=== PATIENT | male | born 1970 ===

== ENCOUNTER 2017-11-07 09:52 | Inpatient (IN) ==
[2017-11-07] MEDS ORDERED: PROPOFOL 1,000 MG/100 ML BOTTLE IV ONE (11:04)
[2017-11-07] MEDS: PROPOFOL 1,000 MG/100 ML BOTTLE IV SCH ×2 (11:30→14:20)
[2017-11-07] MEDS ORDERED: PHENYLEPHRINE DRIP 40 MG/250 ML PREMIX IV ONE (11:37)
[2017-11-07] MEDS ORDERED: PROMETHAZINE 25 MG TABLET PO PRN (11:48)
[2017-11-07] MEDS ORDERED: ALBUTEROL 2.5 MG/3 ML NEB RESP TX PRN ×2 (11:48→12:27)
[2017-11-07] MEDS ORDERED: PANTOPRAZOLE 40 MG VIAL IV SCH (12:00)
[2017-11-07] MEDS ORDERED: cefTRIAXone 1,000 MG in SYRINGE 1 EACH IV SCH (12:00)
[2017-11-07] MEDS ORDERED: PHENYLEPHRINE DRIP 40 MG/250 ML PREMIX IV SCH (12:00)
[2017-11-07] MEDS ORDERED: SODIUM CHLORIDE 0.9% 1,000 ML IV SCH (12:00)
[2017-11-07] MEDS ORDERED: ONDANSETRON 4 MG/2 ML VIAL IV PRN (12:27)
[2017-11-07] MEDS ORDERED: POTASSIUM CHLORIDE 20 MEQ/15 ML UDCUP PER TUBE PRN (12:27)
[2017-11-07] MEDS ORDERED: MAGNESIUM HYDROXIDE SUSP 30 ML UDCUP PO PRN (12:27)
[2017-11-07] MEDS ORDERED: MAGNESIUM OXIDE 400 MG PO PRN (12:27)
[2017-11-07] MEDS ORDERED: DEXTROSE 50% 25 GM/50 ML VIAL IV PRN ×2 (12:27)
[2017-11-07] MEDS ORDERED: GLUCAGON 1 MG VIAL IM PRN ×2 (12:27)
[2017-11-07] MEDS ORDERED: ACETAMINOPHEN 325 MG TABLET PO PRN (12:27)
[2017-11-07] MEDS ORDERED: MAGNESIUM SULFATE 2 GM/50 ML PREMIX IV PRN ×2 (12:27)
[2017-11-07] MEDS ORDERED: LINEZOLID 600 MG/300 ML PREMIX IV SCH (12:30)
[2017-11-07] MEDS ORDERED: methylPREDNISolone SOD SUC 40 MG/1 ML VIAL IV SCH (12:30)
[2017-11-07] MEDS ORDERED: FAMOTIDINE 20 MG/2 ML VIAL IV SCH (12:30)
[2017-11-07 12:48] LABS: ABG HCO3 24.3 MMOL/L (20-26); ABG Oxygen Saturation 93.4 % (95-100); ABG PCO2 40.8 MM HG (35-48); ABG PH 7.393 (7.35-7.45); ABG PO2 70.6 MM HG (80-95)
[2017-11-07] MEDS ORDERED: LINEZOLID INJ 600 MG in PREMIX 1 EACH IV SCH (13:00)
[2017-11-07 13:11] LABS: Basophils % 0.2 % (0.0-0.8); Eosinophils # 0.1 10*3/uL (0.0-0.87); Eosinophils % 0.4 % (0.00-10.9); Hematocrit 39.3 VOL% (42.0-52.0); Hemoglobin 12.1 GM/DL (14.0-18.0); Immature Granulocytes % 1.2 %; Immature Granulocytes Absolute 0.21 #; Lymphocytes # 0.4 10*3/uL (1.4-4.0); Lymphocytes % 2.4 % (21.2-54.2); Mean Corpuscular HGB Conc 30.8 GM/DL (32-36); Mean Corpuscular Hemoglobin 24 PG (27-34); Mean Corpuscular Volume 77.8 FL (87-102); Monocytes # 1.2 10*3/uL (0.11-0.8); Monocytes % 6.7 % (1.7-12.7); Neutrophils # 16.1 10*3/uL (1.4-7.4); Neutrophils % 89.1 % (38.7-73.9); Red Blood Count 5.05 MC/CUMM (3.8-5.5); Red Cell Distribution Width 20.1 % (9.3-17.3)
[2017-11-07 13:12] LABS: Platelet Count 142 T/CUMM (130-400)
[2017-11-07 13:15] LABS: INR 1.1; PT Patient Result 11.2 SECS
[2017-11-07 13:22] LABS: Ammonia 16 UMOL/L (11-32)
[2017-11-07 13:37] LABS: Alanine Aminotransferase 98 U/L (16-61); Alkaline Phosphatase 113 U/L (45-117); Aspartate Amino Transferase 63 U/L (0-37); Blood Urea Nitrogen 80 MG/DL (7-18); Calcium 7.7 MG/DL (8.5-10.1); Glucose 227 MG/DL (74-106); Osmolality,Calculated 318.7 MOS/KG (273-304); Potassium 3.9 MMOL/L (3.5-5.1); Sodium 145 MMOL/L (136-145); Total Protein 5.8 G/DL (6.4-8.3)
[2017-11-07 13:42] LABS: Band Neutrophils 1 % (0-10); Lymphocytes 1 % (20-55); Segmented Neutrophils 96 % (50-85); Total Cells Counted 100
[2017-11-07 13:43] LABS: Hypochromasia 1+; Microcytosis 1+
[2017-11-07 13:44] LABS: Platelet Estimate Adequate
[2017-11-07] MEDS: ALBUTEROL/IPRATROPIUM 3 ML NEB RESP TX SCH ×2 (13:54→19:14)
[2017-11-07] MEDS ORDERED: MORPHINE 4 MG/1 ML VIAL IV PRN ×2 (14:30)
[2017-11-07] MEDS ORDERED: MOXIFLOXACIN 0.5% OPH SOLN 3 ML BOTTLE BOTH EYES SCH (15:00)
[2017-11-07] MEDS ORDERED: FUROSEMIDE 40 MG/4 ML VIAL IV SCH (16:00)
[2017-11-07] MEDS: INSULIN REGULAR 100 UNIT/ML SUBCUT SCH (19:17)
[2017-11-07] MEDS: CIPROFLOXACIN 0.3% OPH SOLN 2.5 ML BOTTLE BOTH EYES SCH ×2 (19:17→21:42)
[2017-11-07] MEDS: DILTIAZEM 30 MG TABLET PO SCH ×2 (19:46→21:41)
[2017-11-07] MEDS ORDERED: ENOXAPARIN 30 MG/0.3 ML SYRINGE SUBCUT SCH (21:00)
[2017-11-07] MEDS ORDERED: NOREPINEPHRINE 8 MG in SODIUM CHLORIDE 0.9% 242 ML IV PRN (21:41)
[2017-11-07] MEDS: FERROUS SULFATE 300 MG/5 ML UDCUP PO SCH (21:42)
[2017-11-07] MEDS: AMIODARONE 200 MG TABLET PO SCH (21:42)
[2017-11-07] MEDS: FUROSEMIDE 40 MG/4 ML VIAL IV SCH (21:42)
[2017-11-07] MEDS: cefTRIAXone 1,000 MG in SYRINGE 1 EACH IV SCH (21:43)
[2017-11-07] MEDS: methylPREDNISolone SOD SUC 40 MG/1 ML VIAL IV SCH (21:43)
[2017-11-07] MEDS: MINERAL OIL/PETROLATUM OPH OINT 3.5 GM TUBE BOTH EYES SCH (21:43)
[2017-11-07] MEDS: FAMOTIDINE 20 MG/2 ML VIAL IV SCH (21:43)
[2017-11-07] MEDS: LINEZOLID INJ 600 MG in PREMIX 1 EACH IV SCH (21:54)
[2017-11-07] MEDS: POLYVINYL ALCOHOL 1.4% OPH SOLN 15 ML BOTTLE BOTH EYES SCH (22:32)
[2017-11-08] MEDS: INSULIN REGULAR 100 UNIT/ML SUBCUT SCH ×4 (00:03→18:48)
[2017-11-08] MEDS: HYDROmorphone 2 MG/1 ML VIAL IV PRN ×2 (01:38→20:53)
[2017-11-08 03:57] LABS: ABG Base Excess 1.2 MMOL/L (-2.5-2.5); ABG HCO3 25.5 MMOL/L (20-26); ABG Oxygen Saturation 98.4 % (95-100); ABG PCO2 53.6 MM HG (35-48); ABG PH 7.329 (7.35-7.45); ABG TCO2 25.3 MMOL/L (23-27)
[2017-11-08] MEDS: DILTIAZEM 30 MG TABLET PO SCH ×4 (04:09→20:40)
[2017-11-08 06:39] LABS: Basophils % 0.1 % (0.0-0.8); Eosinophils % 0.1 % (0.00-10.9); Hematocrit 37.8 VOL% (42.0-52.0); Hemoglobin 11.4 GM/DL (14.0-18.0); Immature Granulocytes % 0.7 %; Immature Granulocytes Absolute 0.09 #; Lymphocytes # 0.2 10*3/uL (1.4-4.0); Lymphocytes % 1.5 % (21.2-54.2); Mean Corpuscular HGB Conc 30.2 GM/DL (32-36); Mean Corpuscular Hemoglobin 24 PG (27-34); Mean Corpuscular Volume 79.1 FL (87-102); Monocytes # 0.3 10*3/uL (0.11-0.8); Monocytes % 2.3 % (1.7-12.7); Neutrophils # 12.6 10*3/uL (1.4-7.4); Neutrophils % 95.3 % (38.7-73.9); Platelet Count 130 T/CUMM (130-400); Red Blood Count 4.78 MC/CUMM (3.8-5.5); Red Cell Distribution Width 20.3 % (9.3-17.3); White Blood Count 13.2 T/CUMM (4-12)
[2017-11-08 06:58] LABS: Band Neutrophils 1 % (0-10); Lymphocytes 1 % (20-55); Segmented Neutrophils 97 % (50-85); Total Cells Counted 100
[2017-11-08 06:59] LABS: Hypochromasia 2+; Microcytosis 1+; Platelet Estimate Adequate
[2017-11-08 07:07] LABS: Albumin 1.9 G/DL (3.4-5.0); Bilirubin,Total 1.5 MG/DL (0.2-1.0); Calcium 7.4 MG/DL (8.5-10.1); Osmolality,Calculated 321.6 MOS/KG (273-304); Potassium 4.5 MMOL/L (3.5-5.1); Total Protein 5.7 G/DL (6.4-8.3)
[2017-11-08] MEDS: ALBUTEROL/IPRATROPIUM 3 ML NEB RESP TX SCH ×4 (07:52→19:16)
[2017-11-08] MEDS: FUROSEMIDE 40 MG/4 ML VIAL IV SCH ×2 (09:33→20:40)
[2017-11-08] MEDS: methylPREDNISolone SOD SUC 40 MG/1 ML VIAL IV SCH ×2 (09:34→20:41)
[2017-11-08] MEDS: ASPIRIN CHEW 81 MG TABLET PO SCH (09:35)
[2017-11-08] MEDS: cefTRIAXone 1,000 MG in SYRINGE 1 EACH IV SCH ×2 (09:35→20:40)
[2017-11-08] MEDS: FERROUS SULFATE 300 MG/5 ML UDCUP PO SCH ×2 (09:36→20:39)
[2017-11-08] MEDS: INSULIN GLARGINE 100 UNIT/ML SUBCUT SCH (09:37)
[2017-11-08] MEDS: AMIODARONE 200 MG TABLET PO SCH ×2 (09:37→20:39)
[2017-11-08] MEDS: POLYVINYL ALCOHOL 1.4% OPH SOLN 15 ML BOTTLE BOTH EYES SCH (11:40)
[2017-11-08] MEDS: CIPROFLOXACIN 0.3% OPH SOLN 2.5 ML BOTTLE BOTH EYES SCH ×3 (11:40→20:40)
[2017-11-08] MEDS: LINEZOLID INJ 600 MG in PREMIX 1 EACH IV SCH ×2 (11:41→20:41)
[2017-11-08 12:36] LABS: Amorphous Crystals,Urine Occasional /HPF (Few); Apearance,Urine Slightly Hazy (Clear); Bacteria,Urine Occasional /HPF (Few); Bilirubin,Urine Negative (Negative); Blood, Urine Large mg/dL (Negative); Glucose,Urine (UA) 50 mg/dL (Negative); Ketones,Urine Negative (Negative); Mucus,Urine Occasional /LPF (Occasional); Nitrite,Urine Negative (Negative); Protein,Urine Negative; RBC,Urine 3 /HPF (0-4); Squamous Epithelial Cell,Urine Occasional /HPF (0-10); Urine Color Yellow (Yellow); Urine Specific Gravity 1.013 (1.001-1.035); Urine Urobilinogen < 2.0 EU/DL (0.2-1.0); WBC,Urine 12 /HPF (0-6)
[2017-11-08] MEDS: PROPOFOL 1,000 MG/100 ML BOTTLE IV SCH (15:54)
[2017-11-08] MEDS: MINERAL OIL/PETROLATUM OPH OINT 3.5 GM TUBE BOTH EYES SCH (20:41)
[2017-11-08] MEDS: FAMOTIDINE 20 MG/2 ML VIAL IV SCH (20:41)
[2017-11-08] MEDS ORDERED: ENOXAPARIN 40 MG/0.4 ML SYRINGE SUBCUT SCH (21:00)
[2017-11-09] MEDS: POLYVINYL ALCOHOL 1.4% OPH SOLN 15 ML BOTTLE BOTH EYES SCH ×2 (00:34→10:32)
[2017-11-09] MEDS: INSULIN REGULAR 100 UNIT/ML SUBCUT SCH ×3 (00:34→12:24)
[2017-11-09] MEDS: ALBUTEROL/IPRATROPIUM 3 ML NEB RESP TX SCH ×3 (00:50→12:21)
[2017-11-09] MEDS: DILTIAZEM 30 MG TABLET PO SCH ×3 (03:53→15:02)
[2017-11-09 03:55] LABS: ABG Base Excess 2.4 MMOL/L (-2.5-2.5); ABG HCO3 26.5 MMOL/L (20-26); ABG Oxygen Saturation 98.4 % (95-100); ABG PCO2 49.3 MM HG (35-48); ABG PH 7.369 (7.35-7.45); ABG TCO2 25.3 MMOL/L (23-27)
[2017-11-09 04:11] LABS: Basophils % 0.1 % (0.0-0.8); Hematocrit 38.5 VOL% (42.0-52.0); Hemoglobin 11.9 GM/DL (14.0-18.0); Immature Granulocytes % 0.6 %; Immature Granulocytes Absolute 0.08 #; Lymphocytes # 0.1 10*3/uL (1.4-4.0); Mean Corpuscular HGB Conc 30.9 GM/DL (32-36); Mean Corpuscular Hemoglobin 24 PG (27-34); Mean Corpuscular Volume 77.6 FL (87-102); Monocytes # 0.2 10*3/uL (0.11-0.8); Monocytes % 1.4 % (1.7-12.7); Neutrophils # 13.3 10*3/uL (1.4-7.4); Neutrophils % 96.9 % (38.7-73.9); Platelet Count 131 T/CUMM (130-400); Red Blood Count 4.96 MC/CUMM (3.8-5.5); Red Cell Distribution Width 20.5 % (9.3-17.3); White Blood Count 13.7 T/CUMM (4-12)
[2017-11-09 04:45] LABS: Calcium 8.1 MG/DL (8.5-10.1); Osmolality,Calculated 333.3 MOS/KG (273-304); Potassium 4.3 MMOL/L (3.5-5.1)
[2017-11-09 04:54] LABS: Prealbumin 14.6 MG/DL (20-40)
[2017-11-09 04:59] LABS: Band Neutrophils 1 % (0-10); Segmented Neutrophils 97 % (50-85); Total Cells Counted 100
[2017-11-09 05:00] LABS: Hypochromasia 1+; Microcytosis 1+; Platelet Estimate Normal
[2017-11-09 05:01] LABS: Giant Platelets Few; Target Cells Few
[2017-11-09] MEDS: cefTRIAXone 1,000 MG in SYRINGE 1 EACH IV SCH (09:28)
[2017-11-09] MEDS: INSULIN GLARGINE 100 UNIT/ML SUBCUT SCH (09:29)
[2017-11-09] MEDS: AMIODARONE 200 MG TABLET PO SCH (09:35)
[2017-11-09] MEDS: FERROUS SULFATE 300 MG/5 ML UDCUP PO SCH (09:35)
[2017-11-09] MEDS: ASPIRIN CHEW 81 MG TABLET PO SCH (09:35)
[2017-11-09] MEDS: methylPREDNISolone SOD SUC 40 MG/1 ML VIAL IV SCH (09:35)
[2017-11-09] MEDS: FUROSEMIDE 40 MG/4 ML VIAL IV SCH (09:37)
[2017-11-09] MEDS: LINEZOLID INJ 600 MG in PREMIX 1 EACH IV SCH (09:45)
[2017-11-09] MEDS: CIPROFLOXACIN 0.3% OPH SOLN 2.5 ML BOTTLE BOTH EYES SCH ×2 (10:32→15:03)
[2017-11-09] MEDS: PROPOFOL 1,000 MG/100 ML BOTTLE IV SCH (12:21)
[2017-11-09] MEDS ORDERED: INSULIN GLARGINE 100 UNIT/ML SUBCUT SCH (13:11)
[2017-11-09 16:33] VITALS: BP 113/79
== END 2017-11-09 16:24 | DRG 208 ==
LOC: N.ICU 11:19

== ENCOUNTER 2017-11-09 21:03 | Inpatient (IN) ==
[2017-11-09] MEDS ORDERED: PROPOFOL 1,000 MG/100 ML BOTTLE IV ONE (22:38)
[2017-11-09] MEDS: PROPOFOL 1,000 MG/100 ML BOTTLE IV SCH (22:50)
[2017-11-09] MEDS ORDERED: PROMETHAZINE 25 MG TABLET PO PRN (23:14)
[2017-11-09] MEDS ORDERED: ALBUTEROL 2.5 MG/3 ML NEB RESP TX PRN (23:14)
[2017-11-09] MEDS ORDERED: MAGNESIUM HYDROXIDE SUSP 30 ML UDCUP PO PRN (23:16)
[2017-11-09] MEDS ORDERED: NOREPINEPHRINE 8 MG in SODIUM CHLORIDE 0.9% 242 ML IV PRN (23:45)
[2017-11-09] MEDS ORDERED: DEXTROSE 50% 25 GM/50 ML VIAL IV PRN (23:50)
[2017-11-09] MEDS ORDERED: HYDROmorphone 2 MG/1 ML VIAL IV PRN (23:50)
[2017-11-09] MEDS ORDERED: ONDANSETRON 4 MG/2 ML VIAL IV PRN (23:51)
[2017-11-09] MEDS ORDERED: DILTIAZEM INJ 100 MG in SODIUM CHLORIDE 0.9% 100 ML IV PRN (23:53)
[2017-11-10] MEDS: ALBUTEROL/IPRATROPIUM 3 ML NEB RESP TX SCH ×4 (01:44→19:23)
[2017-11-10] MEDS: INSULIN REGULAR 100 UNIT/ML SUBCUT SCH ×4 (02:05→17:54)
[2017-11-10 05:03] LABS: ABG Base Excess 1.2 MMOL/L (-2.5-2.5); ABG HCO3 25.5 MMOL/L (20-26); ABG Oxygen Saturation 98.9 % (95-100); ABG PCO2 50.1 MM HG (35-48); ABG TCO2 24.5 MMOL/L (23-27)
[2017-11-10] MEDS: PROPOFOL 1,000 MG/100 ML BOTTLE IV SCH (05:10)
[2017-11-10] MEDS: cefTRIAXone 1,000 MG in SYRINGE 1 EACH IV SCH ×2 (08:48→20:56)
[2017-11-10] MEDS: methylPREDNISolone SOD SUC 40 MG/1 ML VIAL IV SCH ×2 (08:50→20:57)
[2017-11-10] MEDS: FAMOTIDINE 20 MG/2 ML VIAL IV SCH (08:54)
[2017-11-10] MEDS: FERROUS SULFATE 300 MG/5 ML UDCUP PO SCH ×2 (08:55→20:57)
[2017-11-10] MEDS: ASPIRIN 325 MG TABLET PO SCH (08:55)
[2017-11-10] MEDS: AMIODARONE 200 MG TABLET PO SCH ×2 (08:55→20:57)
[2017-11-10] MEDS: FUROSEMIDE 40 MG/4 ML VIAL IV SCH ×2 (08:55→20:56)
[2017-11-10] MEDS: ENOXAPARIN 40 MG/0.4 ML SYRINGE SUBCUT SCH (08:56)
[2017-11-10] MEDS: LINEZOLID INJ 600 MG in PREMIX 1 EACH IV SCH ×2 (08:57→20:57)
[2017-11-10] MEDS: CIPROFLOXACIN 0.3% OPH SOLN 2.5 ML BOTTLE BOTH EYES SCH ×3 (08:58→20:57)
[2017-11-10] MEDS: POLYVINYL ALCOHOL 1.4% OPH SOLN 15 ML BOTTLE BOTH EYES SCH ×2 (08:58→20:57)
[2017-11-10] MEDS: MINERAL OIL/PETROLATUM OPH OINT 3.5 GM TUBE BOTH EYES SCH (20:57)
[2017-11-11] MEDS: INSULIN REGULAR 100 UNIT/ML SUBCUT SCH ×4 (00:24→17:49)
[2017-11-11] MEDS: ALBUTEROL/IPRATROPIUM 3 ML NEB RESP TX SCH ×4 (00:30→19:49)
[2017-11-11] MEDS: PROPOFOL 1,000 MG/100 ML BOTTLE IV SCH (00:37)
[2017-11-11 04:20] LABS: ABG Base Excess 2.3 MMOL/L (-2.5-2.5); ABG HCO3 26.4 MMOL/L (20-26); ABG Oxygen Saturation 99.4 % (95-100); ABG PCO2 52.6 MM HG (35-48); ABG PH 7.349 (7.35-7.45); ABG TCO2 25.6 MMOL/L (23-27)
[2017-11-11 07:32] LABS: Calcium 8.6 MG/DL (8.5-10.1); Osmolality,Calculated 346.9 MOS/KG (273-304); Potassium 4.4 MMOL/L (3.5-5.1)
[2017-11-11] MEDS: POLYVINYL ALCOHOL 1.4% OPH SOLN 15 ML BOTTLE BOTH EYES SCH ×2 (08:43→20:38)
[2017-11-11] MEDS: CIPROFLOXACIN 0.3% OPH SOLN 2.5 ML BOTTLE BOTH EYES SCH ×3 (08:43→20:38)
[2017-11-11] MEDS: FERROUS SULFATE 300 MG/5 ML UDCUP PO SCH ×2 (08:43→20:38)
[2017-11-11] MEDS: ASPIRIN 325 MG TABLET PO SCH (08:43)
[2017-11-11] MEDS: AMIODARONE 200 MG TABLET PO SCH ×2 (08:43→20:38)
[2017-11-11] MEDS: ENOXAPARIN 40 MG/0.4 ML SYRINGE SUBCUT SCH (08:44)
[2017-11-11] MEDS: FAMOTIDINE 20 MG/2 ML VIAL IV SCH (08:44)
[2017-11-11] MEDS: cefTRIAXone 1,000 MG in SYRINGE 1 EACH IV SCH (08:44)
[2017-11-11] MEDS: FUROSEMIDE 40 MG/4 ML VIAL IV SCH (08:44)
[2017-11-11] MEDS: LINEZOLID INJ 600 MG in PREMIX 1 EACH IV SCH ×2 (08:48→20:36)
[2017-11-11] MEDS: methylPREDNISolone SOD SUC 40 MG/1 ML VIAL IV SCH (08:48)
[2017-11-11 08:55] LABS: Eosinophils % 0.6 % (0.00-10.9); Hemoglobin 11.7 GM/DL (14.0-18.0); Immature Granulocytes % 1.1 %; Immature Granulocytes Absolute 0.02 #; Lymphocytes # 0.1 10*3/uL (1.4-4.0); Mean Corpuscular HGB Conc 29.4 GM/DL (32-36); Mean Corpuscular Hemoglobin 24 PG (27-34); Mean Corpuscular Volume 81.1 FL (87-102); Monocytes # 0.3 10*3/uL (0.11-0.8); Monocytes % 17.2 % (1.7-12.7); Neutrophils # 1.4 10*3/uL (1.4-7.4); Neutrophils % 76.1 % (38.7-73.9); Platelet Count 109 T/CUMM (130-400); Red Blood Count 4.91 MC/CUMM (3.8-5.5); Red Cell Distribution Width 20.7 % (9.3-17.3); White Blood Count 1.8 T/CUMM (4-12)
[2017-11-11 09:05] LABS: Hematocrit 39.8 VOL% (42.0-52.0)
[2017-11-11 09:26] LABS: Band Neutrophils 3 % (0-10); Eosinophils 2 % (0-10); Lymphocytes 18 % (20-55); Nucleated Red Blood Cells 5 (0-5); Segmented Neutrophils 60 % (50-85); Total Cells Counted 100
[2017-11-11 09:27] LABS: Hypochromasia 1+
[2017-11-11 09:28] LABS: Microcytosis 1+; Platelet Estimate Decreased
[2017-11-11 09:29] LABS: Spherocytes Few
[2017-11-11] MEDS: INSULIN NPH 100 UNIT/ML SUBCUT SCH (17:49)
[2017-11-11] MEDS: MINERAL OIL/PETROLATUM OPH OINT 3.5 GM TUBE BOTH EYES SCH (20:41)
[2017-11-12] MEDS: PROPOFOL 1,000 MG/100 ML BOTTLE IV SCH (00:03)
[2017-11-12] MEDS: INSULIN REGULAR 100 UNIT/ML SUBCUT SCH ×4 (00:12→17:01)
[2017-11-12] MEDS: ALBUTEROL/IPRATROPIUM 3 ML NEB RESP TX SCH ×4 (00:38→20:05)
[2017-11-12 06:16] LABS: ABG HCO3 27.5 MMOL/L (20-26); ABG PCO2 53.9 MM HG (35-48); ABG PH 7.358 (7.35-7.45)
[2017-11-12 06:17] LABS: ABG Base Excess 3.5 MMOL/L (-2.5-2.5); ABG Oxygen Saturation 98.3 % (95-100); ABG TCO2 26.8 MMOL/L (23-27)
[2017-11-12 07:48] LABS: Basophils % 0.8 % (0.0-0.8); Eosinophils # 0.2 10*3/uL (0.0-0.87); Eosinophils % 17.4 % (0.00-10.9); Hematocrit 41.1 VOL% (42.0-52.0); Hemoglobin 12.5 GM/DL (14.0-18.0); Immature Granulocytes % 0.8 %; Immature Granulocytes Absolute 0.01 #; Lymphocytes # 0.2 10*3/uL (1.4-4.0); Lymphocytes % 15.7 % (21.2-54.2); Mean Corpuscular HGB Conc 30.4 GM/DL (32-36); Mean Corpuscular Hemoglobin 24 PG (27-34); Mean Corpuscular Volume 79.3 FL (87-102); Monocytes # 0.3 10*3/uL (0.11-0.8); Monocytes % 28.1 % (1.7-12.7); Neutrophils # 0.5 10*3/uL (1.4-7.4); Neutrophils % 37.2 % (38.7-73.9); Platelet Count 128 T/CUMM (130-400); Red Blood Count 5.18 MC/CUMM (3.8-5.5); Red Cell Distribution Width 20.6 % (9.3-17.3); White Blood Count 1.2 T/CUMM (4-12)
[2017-11-12 08:19] LABS: Prealbumin 16.8 MG/DL (20-40)
[2017-11-12 08:38] LABS: Calcium 8.8 MG/DL (8.5-10.1); Osmolality,Calculated 345.7 MOS/KG (273-304)
[2017-11-12 09:00] LABS: Band Neutrophils 4 % (0-10); Eosinophils 4 % (0-10); Lymphocytes 24 % (20-55); Nucleated Red Blood Cells 1 (0-5); Segmented Neutrophils 52 % (50-85); Total Cells Counted 100
[2017-11-12] MEDS ORDERED: methylPREDNISolone SOD SUC 40 MG/1 ML VIAL IV SCH (09:00)
[2017-11-12] MEDS: FERROUS SULFATE 300 MG/5 ML UDCUP PO SCH ×2 (09:02→22:11)
[2017-11-12] MEDS: FUROSEMIDE 40 MG/4 ML VIAL IV SCH (09:02)
[2017-11-12] MEDS: CIPROFLOXACIN 0.3% OPH SOLN 2.5 ML BOTTLE BOTH EYES SCH ×3 (09:02→22:12)
[2017-11-12] MEDS: ASPIRIN 325 MG TABLET PO SCH (09:02)
[2017-11-12] MEDS: AMIODARONE 200 MG TABLET PO SCH ×2 (09:02→22:11)
[2017-11-12] MEDS: INSULIN NPH 100 UNIT/ML SUBCUT SCH ×2 (09:02→16:56)
[2017-11-12] MEDS: POLYVINYL ALCOHOL 1.4% OPH SOLN 15 ML BOTTLE BOTH EYES SCH ×2 (09:02→22:12)
[2017-11-12] MEDS: FAMOTIDINE 20 MG/2 ML VIAL IV SCH (09:03)
[2017-11-12 09:04] LABS: Microcytosis Slight
[2017-11-12 09:05] LABS: Hypochromasia 1+
[2017-11-12 09:06] LABS: Platelet Estimate Adequate
[2017-11-12] MEDS: MINERAL OIL/PETROLATUM OPH OINT 3.5 GM TUBE BOTH EYES SCH (22:12)
[2017-11-13] MEDS: PROPOFOL 1,000 MG/100 ML BOTTLE IV SCH ×2 (00:30→23:54)
[2017-11-13] MEDS: INSULIN REGULAR 100 UNIT/ML SUBCUT SCH ×4 (01:45→17:54)
[2017-11-13] MEDS: ALBUTEROL/IPRATROPIUM 3 ML NEB RESP TX SCH ×4 (02:09→19:11)
[2017-11-13 03:00] LABS: ABG Base Excess 6.3 MMOL/L (-2.5-2.5); ABG HCO3 30.1 MMOL/L (20-26); ABG Oxygen Saturation 98.6 % (95-100); ABG PCO2 47.7 MM HG (35-48); ABG PH 7.431 (7.35-7.45); ABG TCO2 27.5 MMOL/L (23-27); Allen Test Positive; Pt O2 Delivery Device Ventilator
[2017-11-13] MEDS: FAMOTIDINE 20 MG/2 ML VIAL IV SCH (08:15)
[2017-11-13] MEDS: FERROUS SULFATE 300 MG/5 ML UDCUP PO SCH ×2 (08:18→20:54)
[2017-11-13] MEDS: ASPIRIN 325 MG TABLET PO SCH (08:18)
[2017-11-13] MEDS: FUROSEMIDE 40 MG/4 ML VIAL IV SCH (08:18)
[2017-11-13] MEDS: AMIODARONE 200 MG TABLET PO SCH ×2 (08:18→20:55)
[2017-11-13] MEDS: INSULIN NPH 100 UNIT/ML SUBCUT SCH ×2 (08:18→17:54)
[2017-11-13] MEDS: CIPROFLOXACIN 0.3% OPH SOLN 2.5 ML BOTTLE BOTH EYES SCH ×3 (08:19→20:55)
[2017-11-13] MEDS: POLYVINYL ALCOHOL 1.4% OPH SOLN 15 ML BOTTLE BOTH EYES SCH ×2 (08:19→20:55)
[2017-11-13] MEDS ORDERED: GLUCAGON 1 MG VIAL IM PRN (10:12)
[2017-11-13] MEDS: MINERAL OIL/PETROLATUM OPH OINT 3.5 GM TUBE BOTH EYES SCH (20:56)
[2017-11-14] MEDS: INSULIN REGULAR 100 UNIT/ML SUBCUT SCH ×5 (00:07→23:33)
[2017-11-14] MEDS: ALBUTEROL/IPRATROPIUM 3 ML NEB RESP TX SCH ×4 (00:53→19:26)
[2017-11-14 04:33] LABS: ABG Base Excess 8.3 MMOL/L (-2.5-2.5); ABG Oxygen Saturation 96.1 % (95-100); ABG PCO2 43.4 MM HG (35-48); ABG PH 7.485 (7.35-7.45); ABG PO2 79.1 MM HG (80-95); ABG TCO2 28.6 MMOL/L (23-27); Allen Test Positive; Pt O2 Delivery Device Ventilator
[2017-11-14 07:45] LABS: Calcium 8.5 MG/DL (8.5-10.1); Osmolality,Calculated 341.4 MOS/KG (273-304); Potassium 4.1 MMOL/L (3.5-5.1)
[2017-11-14] MEDS: FAMOTIDINE 20 MG/2 ML VIAL IV SCH (08:00)
[2017-11-14] MEDS: FERROUS SULFATE 300 MG/5 ML UDCUP PO SCH ×2 (08:02→20:55)
[2017-11-14] MEDS: ASPIRIN 325 MG TABLET PO SCH (08:02)
[2017-11-14] MEDS: AMIODARONE 200 MG TABLET PO SCH ×2 (08:02→20:55)
[2017-11-14] MEDS: INSULIN NPH 100 UNIT/ML SUBCUT SCH ×2 (08:02→16:07)
[2017-11-14] MEDS: CIPROFLOXACIN 0.3% OPH SOLN 2.5 ML BOTTLE BOTH EYES SCH ×3 (08:03→20:56)
[2017-11-14] MEDS: FUROSEMIDE 40 MG/4 ML VIAL IV SCH (08:03)
[2017-11-14] MEDS: POLYVINYL ALCOHOL 1.4% OPH SOLN 15 ML BOTTLE BOTH EYES SCH ×2 (08:04→20:57)
[2017-11-14] MEDS: DEXTROSE 5% 1,000 ML IV SCH ×2 (10:00→19:07)
[2017-11-14] MEDS: DILTIAZEM INJ 100 MG in SODIUM CHLORIDE 0.9% 100 ML IV SCH (14:21)
[2017-11-14] MEDS: MINERAL OIL/PETROLATUM OPH OINT 3.5 GM TUBE BOTH EYES SCH (20:57)
[2017-11-14] MEDS: PROPOFOL 1,000 MG/100 ML BOTTLE IV SCH (22:42)
[2017-11-15] MEDS: ALBUTEROL/IPRATROPIUM 3 ML NEB RESP TX SCH ×4 (00:28→20:09)
[2017-11-15 04:38] LABS: Calcium 7.7 MG/DL (8.5-10.1); Osmolality,Calculated 332.9 MOS/KG (273-304); Potassium 3.6 MMOL/L (3.5-5.1)
[2017-11-15] MEDS: DEXTROSE 5% 1,000 ML IV SCH ×2 (05:08→15:20)
[2017-11-15] MEDS: INSULIN REGULAR 100 UNIT/ML SUBCUT SCH ×4 (06:01→23:38)
[2017-11-15] MEDS: INSULIN NPH 100 UNIT/ML SUBCUT SCH ×2 (07:51→15:41)
[2017-11-15] MEDS: FAMOTIDINE 20 MG/2 ML VIAL IV SCH (08:43)
[2017-11-15] MEDS: POLYVINYL ALCOHOL 1.4% OPH SOLN 15 ML BOTTLE BOTH EYES SCH ×2 (08:44→20:55)
[2017-11-15] MEDS: CIPROFLOXACIN 0.3% OPH SOLN 2.5 ML BOTTLE BOTH EYES SCH ×3 (08:44→20:56)
[2017-11-15] MEDS: FERROUS SULFATE 300 MG/5 ML UDCUP PO SCH ×2 (08:45→20:55)
[2017-11-15] MEDS: FUROSEMIDE 40 MG/4 ML VIAL IV SCH (08:45)
[2017-11-15] MEDS: ASPIRIN 325 MG TABLET PO SCH (08:45)
[2017-11-15] MEDS: AMIODARONE 200 MG TABLET PO SCH ×2 (08:45→20:55)
[2017-11-15 09:51] LABS: ABG Base Excess 7.8 MMOL/L (-2.5-2.5); ABG HCO3 31.3 MMOL/L (20-26); ABG PCO2 39.7 MM HG (35-48); ABG PH 7.515 (7.35-7.45); ABG PO2 85.2 MM HG (80-95); ABG TCO2 32.5 MMOL/L (23-27)
[2017-11-15] MEDS: DILTIAZEM INJ 100 MG in SODIUM CHLORIDE 0.9% 100 ML IV SCH (14:00)
[2017-11-15] MEDS: MINERAL OIL/PETROLATUM OPH OINT 3.5 GM TUBE BOTH EYES SCH (20:56)
[2017-11-15] MEDS: PROPOFOL 1,000 MG/100 ML BOTTLE IV SCH (23:35)
[2017-11-16] MEDS: ALBUTEROL/IPRATROPIUM 3 ML NEB RESP TX SCH ×4 (01:33→19:09)
[2017-11-16] MEDS: DEXTROSE 5% 1,000 ML IV SCH ×3 (02:15→22:24)
[2017-11-16] MEDS: INSULIN REGULAR 100 UNIT/ML SUBCUT SCH ×3 (05:49→17:27)
[2017-11-16 06:37] LABS: Calcium 7.8 MG/DL (8.5-10.1)
[2017-11-16 06:38] LABS: Osmolality,Calculated 313.6 MOS/KG (273-304); Potassium 3.4 MMOL/L (3.5-5.1); Prealbumin 10.3 MG/DL (20-40)
[2017-11-16] MEDS: POLYVINYL ALCOHOL 1.4% OPH SOLN 15 ML BOTTLE BOTH EYES SCH ×2 (08:26→20:27)
[2017-11-16] MEDS: INSULIN NPH 100 UNIT/ML SUBCUT SCH ×2 (08:26→17:27)
[2017-11-16] MEDS: CIPROFLOXACIN 0.3% OPH SOLN 2.5 ML BOTTLE BOTH EYES SCH ×3 (08:26→20:27)
[2017-11-16] MEDS: FERROUS SULFATE 300 MG/5 ML UDCUP PO SCH ×2 (08:27→20:27)
[2017-11-16] MEDS: FAMOTIDINE 20 MG/2 ML VIAL IV SCH (08:27)
[2017-11-16] MEDS: FUROSEMIDE 40 MG/4 ML VIAL IV SCH (08:27)
[2017-11-16] MEDS: AMIODARONE 200 MG TABLET PO SCH ×2 (08:28→20:27)
[2017-11-16] MEDS: ASPIRIN 325 MG TABLET PO SCH (08:28)
[2017-11-16] MEDS ORDERED: POTASSIUM CHLORIDE RIDER 20 MEQ in PREMIX 1 EACH IV PRN (10:52)
[2017-11-16] MEDS ORDERED: POTASSIUM CHLORIDE RIDER 10 MEQ in PREMIX 1 EACH IV ONE (13:17)
[2017-11-16] MEDS: DILTIAZEM INJ 100 MG in SODIUM CHLORIDE 0.9% 100 ML IV SCH (15:08)
[2017-11-16] MEDS: MINERAL OIL/PETROLATUM OPH OINT 3.5 GM TUBE BOTH EYES SCH (20:27)
[2017-11-16] MEDS: PROPOFOL 1,000 MG/100 ML BOTTLE IV SCH (22:24)
[2017-11-17] MEDS: ALBUTEROL/IPRATROPIUM 3 ML NEB RESP TX SCH ×4 (00:11→19:59)
[2017-11-17] MEDS: INSULIN REGULAR 100 UNIT/ML SUBCUT SCH ×4 (00:27→17:39)
[2017-11-17 03:49] LABS: Basophils % 0.8 % (0.0-0.8); Eosinophils # 0.7 10*3/uL (0.0-0.87); Eosinophils % 16.5 % (0.00-10.9); Hematocrit 37.1 VOL% (42.0-52.0); Hemoglobin 11.4 GM/DL (14.0-18.0); Immature Granulocytes % 8.9 %; Immature Granulocytes Absolute 0.35 #; Lymphocytes % 24.1 % (21.2-54.2); Mean Corpuscular HGB Conc 30.7 GM/DL (32-36); Mean Corpuscular Hemoglobin 24 PG (27-34); Mean Corpuscular Volume 78.4 FL (87-102); Mean Platelet Volume 11.3 FL (9.6-12.0); Monocytes # 0.9 10*3/uL (0.11-0.8); Monocytes % 23.3 % (1.7-12.7); NRBC # 0.04 10*3/uL; Neutrophils # 1.1 10*3/uL (1.4-7.4); Neutrophils % 26.4 % (38.7-73.9); Platelet Count 149 T/CUMM (130-400); Red Blood Count 4.73 MC/CUMM (3.8-5.5); Red Cell Distribution Width 20.7 % (9.3-17.3)
[2017-11-17 04:37] LABS: ABG Base Excess 6.4 MMOL/L (-2.5-2.5); ABG HCO3 30.1 MMOL/L (20-26); ABG Oxygen Saturation 94.4 % (95-100); ABG PCO2 39.4 MM HG (35-48); ABG PH 7.492 (7.35-7.45); ABG PO2 69.1 MM HG (80-95); ABG TCO2 26.3 MMOL/L (23-27); Allen Test Positive; Pt O2 Delivery Device Ventilator
[2017-11-17 04:55] LABS: Band Neutrophils 10 % (0-10); Eosinophils 21 % (0-10); Lymphocytes 28 % (20-55); Segmented Neutrophils 20 % (50-85); Total Cells Counted 100
[2017-11-17 04:56] LABS: Giant Platelets Few; Platelet Estimate Normal
[2017-11-17 04:58] LABS: Hypochromasia Slight
[2017-11-17] MEDS ORDERED: ALTEPLASE 2 MG VIAL IV ONE ×2 (08:00)
[2017-11-17 08:37] LABS: Calcium 7.8 MG/DL (8.5-10.1); Osmolality,Calculated 296.7 MOS/KG (273-304); Potassium 3.7 MMOL/L (3.5-5.1)
[2017-11-17] MEDS: INSULIN NPH 100 UNIT/ML SUBCUT SCH ×2 (08:51→17:39)
[2017-11-17] MEDS: FAMOTIDINE 20 MG/2 ML VIAL IV SCH (08:51)
[2017-11-17] MEDS: POLYVINYL ALCOHOL 1.4% OPH SOLN 15 ML BOTTLE BOTH EYES SCH ×2 (08:52→20:29)
[2017-11-17] MEDS: AMIODARONE 200 MG TABLET PO SCH ×2 (08:52→20:29)
[2017-11-17] MEDS: FUROSEMIDE 40 MG/4 ML VIAL IV SCH (08:52)
[2017-11-17] MEDS: CIPROFLOXACIN 0.3% OPH SOLN 2.5 ML BOTTLE BOTH EYES SCH ×3 (08:52→20:29)
[2017-11-17] MEDS: ASPIRIN 325 MG TABLET PO SCH (08:52)
[2017-11-17] MEDS: FERROUS SULFATE 300 MG/5 ML UDCUP PO SCH ×2 (08:52→20:29)
[2017-11-17] MEDS: DEXTROSE 5% 1,000 ML IV SCH ×2 (09:24→19:47)
[2017-11-17] MEDS: DILTIAZEM INJ 100 MG in SODIUM CHLORIDE 0.9% 100 ML IV SCH (13:27)
[2017-11-17] MEDS: MINERAL OIL/PETROLATUM OPH OINT 3.5 GM TUBE BOTH EYES SCH (20:29)
[2017-11-18] MEDS: INSULIN REGULAR 100 UNIT/ML SUBCUT SCH ×4 (00:15→17:26)
[2017-11-18] MEDS: ALBUTEROL/IPRATROPIUM 3 ML NEB RESP TX SCH ×4 (01:16→19:07)
[2017-11-18] MEDS: PROPOFOL 1,000 MG/100 ML BOTTLE IV SCH (01:24)
[2017-11-18 03:51] LABS: ABG Base Excess 4.9 MMOL/L (-2.5-2.5); ABG HCO3 27.4 MMOL/L (20-26); ABG PCO2 33.5 MM HG (35-48); ABG PH 7.531 (7.35-7.45); ABG PO2 110.2 MM HG (80-95); ABG TCO2 28.5 MMOL/L (23-27); Allen Test Positive; Pt O2 Delivery Device Ventilator
[2017-11-18] MEDS: DEXTROSE 5% 1,000 ML IV SCH ×2 (05:47→15:10)
[2017-11-18] MEDS: FUROSEMIDE 40 MG/4 ML VIAL IV SCH (08:09)
[2017-11-18] MEDS: ASPIRIN 325 MG TABLET PO SCH (08:11)
[2017-11-18] MEDS: POLYVINYL ALCOHOL 1.4% OPH SOLN 15 ML BOTTLE BOTH EYES SCH ×2 (08:11→22:24)
[2017-11-18] MEDS: INSULIN NPH 100 UNIT/ML SUBCUT SCH ×2 (08:11→16:37)
[2017-11-18] MEDS: AMIODARONE 200 MG TABLET PO SCH ×2 (08:11→22:23)
[2017-11-18] MEDS: FAMOTIDINE 20 MG/2 ML VIAL IV SCH (08:11)
[2017-11-18] MEDS: CIPROFLOXACIN 0.3% OPH SOLN 2.5 ML BOTTLE BOTH EYES SCH ×3 (08:11→22:24)
[2017-11-18] MEDS: FERROUS SULFATE 300 MG/5 ML UDCUP PO SCH ×2 (08:12→22:23)
[2017-11-18] MEDS: DILTIAZEM INJ 100 MG in SODIUM CHLORIDE 0.9% 100 ML IV SCH (14:05)
[2017-11-18] MEDS: MINERAL OIL/PETROLATUM OPH OINT 3.5 GM TUBE BOTH EYES SCH (22:25)
[2017-11-19] MEDS: INSULIN REGULAR 100 UNIT/ML SUBCUT SCH ×4 (00:45→17:19)
[2017-11-19] MEDS: ALBUTEROL/IPRATROPIUM 3 ML NEB RESP TX SCH ×4 (01:18→19:05)
[2017-11-19] MEDS: DEXTROSE 5% 1,000 ML IV SCH ×2 (01:56→12:11)
[2017-11-19] MEDS: PROPOFOL 1,000 MG/100 ML BOTTLE IV SCH ×2 (01:57→19:28)
[2017-11-19 06:48] LABS: Prealbumin 5.8 MG/DL (20-40)
[2017-11-19] MEDS: AMIODARONE 200 MG TABLET PO SCH ×2 (09:41→20:49)
[2017-11-19] MEDS: ASPIRIN 325 MG TABLET PO SCH (09:41)
[2017-11-19] MEDS: FERROUS SULFATE 300 MG/5 ML UDCUP PO SCH ×2 (09:41→20:49)
[2017-11-19] MEDS: INSULIN NPH 100 UNIT/ML SUBCUT SCH ×2 (09:41→17:19)
[2017-11-19] MEDS: FUROSEMIDE 40 MG/4 ML VIAL IV SCH (09:42)
[2017-11-19] MEDS: FAMOTIDINE 20 MG/2 ML VIAL IV SCH (09:42)
[2017-11-19] MEDS: CIPROFLOXACIN 0.3% OPH SOLN 2.5 ML BOTTLE BOTH EYES SCH ×3 (09:43→20:50)
[2017-11-19] MEDS: POLYVINYL ALCOHOL 1.4% OPH SOLN 15 ML BOTTLE BOTH EYES SCH ×2 (09:44→20:51)
[2017-11-19] MEDS ORDERED: SKIN HEALING OINT (AQUAPHOR) 50 GM TUBE TOP PRN (10:33)
[2017-11-19] MEDS: DILTIAZEM INJ 100 MG in SODIUM CHLORIDE 0.9% 100 ML IV SCH (13:39)
[2017-11-19] MEDS: MINERAL OIL/PETROLATUM OPH OINT 3.5 GM TUBE BOTH EYES SCH (20:50)
[2017-11-20] MEDS: ALBUTEROL/IPRATROPIUM 3 ML NEB RESP TX SCH ×4 (00:47→19:27)
[2017-11-20] MEDS: INSULIN REGULAR 100 UNIT/ML SUBCUT SCH ×4 (01:05→18:00)
[2017-11-20 04:06] LABS: Basophils # 0.1 10*3/uL (0.0-0.2); Basophils % 0.9 % (0.0-0.8); Eosinophils # 0.7 10*3/uL (0.0-0.87); Eosinophils % 8.1 % (0.00-10.9); Hematocrit 31.5 VOL% (42.0-52.0); Hemoglobin 9.7 GM/DL (14.0-18.0); Immature Granulocytes Absolute 1.15 #; Lymphocytes % 12.3 % (21.2-54.2); Mean Corpuscular HGB Conc 30.8 GM/DL (32-36); Mean Corpuscular Hemoglobin 24 PG (27-34); Mean Corpuscular Volume 77.4 FL (87-102); Mean Platelet Volume 11.3 FL (9.6-12.0); Monocytes # 1.1 10*3/uL (0.11-0.8); Monocytes % 12.8 % (1.7-12.7); NRBC # 0.07 10*3/uL; Neutrophils # 4.3 10*3/uL (1.4-7.4); Neutrophils % 51.9 % (38.7-73.9); Platelet Count 205 T/CUMM (130-400); Red Blood Count 4.07 MC/CUMM (3.8-5.5); Red Cell Distribution Width 21.3 % (9.3-17.3); White Blood Count 8.2 T/CUMM (4-12)
[2017-11-20 04:26] LABS: Band Neutrophils 35 % (0-10); Eosinophils 13 % (0-10); Lymphocytes 15 % (20-55); Nucleated Red Blood Cells 2 (0-5); Segmented Neutrophils 22 % (50-85); Total Cells Counted 100
[2017-11-20 04:27] LABS: ABG Base Excess 5.1 MMOL/L (-2.5-2.5); ABG HCO3 28.5 MMOL/L (20-26); ABG Oxygen Saturation 97.1 % (95-100); ABG PH 7.504 (7.35-7.45); ABG PO2 93.1 MM HG (80-95); ABG TCO2 29.6 MMOL/L (23-27); Allen Test Positive; Pt O2 Delivery Device Ventilator
[2017-11-20 04:27] LABS: Anisocytosis 2+; Hypochromasia 1+; Poikilocytosis 1+; Polychromasia 1+
[2017-11-20 04:33] LABS: Calcium 7.5 MG/DL (8.5-10.1); Osmolality,Calculated 285.5 MOS/KG (273-304); Potassium 3.2 MMOL/L (3.5-5.1)
[2017-11-20] MEDS: PROPOFOL 1,000 MG/100 ML BOTTLE IV SCH (06:12)
[2017-11-20] MEDS: ASPIRIN 325 MG TABLET PO SCH (09:15)
[2017-11-20] MEDS: AMIODARONE 200 MG TABLET PO SCH ×2 (09:15→22:19)
[2017-11-20] MEDS: FUROSEMIDE 40 MG/4 ML VIAL IV SCH (09:15)
[2017-11-20] MEDS: FERROUS SULFATE 300 MG/5 ML UDCUP PO SCH ×2 (09:15→22:19)
[2017-11-20] MEDS: INSULIN NPH 100 UNIT/ML SUBCUT SCH ×2 (09:15→17:59)
[2017-11-20] MEDS: POTASSIUM CHLORIDE 20 MEQ/15 ML UDCUP PER TUBE PRN ×4 (09:15→15:15)
[2017-11-20] MEDS: FAMOTIDINE 20 MG/2 ML VIAL IV SCH (09:16)
[2017-11-20] MEDS: CIPROFLOXACIN 0.3% OPH SOLN 2.5 ML BOTTLE BOTH EYES SCH ×3 (09:16→22:21)
[2017-11-20] MEDS: POLYVINYL ALCOHOL 1.4% OPH SOLN 15 ML BOTTLE BOTH EYES SCH ×2 (09:17→22:21)
[2017-11-20] MEDS: DILTIAZEM INJ 100 MG in SODIUM CHLORIDE 0.9% 100 ML IV SCH (13:11)
[2017-11-20] MEDS: MINERAL OIL/PETROLATUM OPH OINT 3.5 GM TUBE BOTH EYES SCH (22:22)
[2017-11-21] MEDS: ALBUTEROL/IPRATROPIUM 3 ML NEB RESP TX SCH ×4 (00:09→19:47)
[2017-11-21] MEDS: PROPOFOL 1,000 MG/100 ML BOTTLE IV SCH (01:11)
[2017-11-21] MEDS: INSULIN REGULAR 100 UNIT/ML SUBCUT SCH ×4 (01:12→17:30)
[2017-11-21 04:43] LABS: ABG Base Excess 4.6 MMOL/L (-2.5-2.5); ABG HCO3 28.6 MMOL/L (20-26); ABG Oxygen Saturation 99.2 % (95-100); ABG PCO2 41.1 MM HG (35-48); ABG PH 7.456 (7.35-7.45); ABG TCO2 26.4 MMOL/L (23-27); Allen Test Positive; Pt O2 Delivery Device Ventilator
[2017-11-21] MEDS: INSULIN NPH 100 UNIT/ML SUBCUT SCH ×2 (09:28→17:30)
[2017-11-21] MEDS: FUROSEMIDE 40 MG/4 ML VIAL IV SCH (09:28)
[2017-11-21] MEDS: FAMOTIDINE 20 MG/2 ML VIAL IV SCH (09:28)
[2017-11-21] MEDS: AMIODARONE 200 MG TABLET PO SCH ×2 (09:28→21:32)
[2017-11-21] MEDS: CIPROFLOXACIN 0.3% OPH SOLN 2.5 ML BOTTLE BOTH EYES SCH ×3 (09:29→21:32)
[2017-11-21] MEDS: ASPIRIN 325 MG TABLET PO SCH (09:29)
[2017-11-21] MEDS: FERROUS SULFATE 300 MG/5 ML UDCUP PO SCH ×2 (09:29→21:32)
[2017-11-21] MEDS: POLYVINYL ALCOHOL 1.4% OPH SOLN 15 ML BOTTLE BOTH EYES SCH ×2 (09:29→21:32)
[2017-11-21] MEDS: DILTIAZEM INJ 100 MG in SODIUM CHLORIDE 0.9% 100 ML IV SCH (16:40)
[2017-11-21] MEDS: MINERAL OIL/PETROLATUM OPH OINT 3.5 GM TUBE BOTH EYES SCH (21:32)
[2017-11-22] MEDS: ALBUTEROL/IPRATROPIUM 3 ML NEB RESP TX SCH ×4 (00:47→20:47)
[2017-11-22] MEDS: INSULIN REGULAR 100 UNIT/ML SUBCUT SCH ×2 (02:12→07:17)
[2017-11-22] MEDS: PROPOFOL 1,000 MG/100 ML BOTTLE IV SCH ×2 (02:12→23:40)
[2017-11-22 03:24] LABS: Allen Test Positive; Pt O2 Delivery Device Ventilator
[2017-11-22 03:25] LABS: ABG Base Excess 6.3 MMOL/L (-2.5-2.5); ABG HCO3 30.2 MMOL/L (20-26); ABG Oxygen Saturation 99.6 % (95-100); ABG PH 7.471 (7.35-7.45); ABG TCO2 27.9 MMOL/L (23-27)
[2017-11-22] MEDS ORDERED: SODIUM CHLORIDE 0.9% 1,000 ML IV PRN ×2 (05:31→05:41)
[2017-11-22 06:04] LABS: Basophils # 0.1 10*3/uL (0.0-0.2); Basophils % 0.6 % (0.0-0.8); Eosinophils # 0.9 10*3/uL (0.0-0.87); Eosinophils % 4.7 % (0.00-10.9); Hematocrit 29.4 VOL% (42.0-52.0); Hemoglobin 9.2 GM/DL (14.0-18.0); Immature Granulocytes % 19.8 %; Immature Granulocytes Absolute 3.93 #; Lymphocytes # 2.7 10*3/uL (1.4-4.0); Lymphocytes % 13.5 % (21.2-54.2); Mean Corpuscular HGB Conc 31.3 GM/DL (32-36); Mean Corpuscular Hemoglobin 25 PG (27-34); Mean Platelet Volume 11.3 FL (9.6-12.0); NRBC # 0.15 10*3/uL; Neutrophils # 10.2 10*3/uL (1.4-7.4); Neutrophils % 51.4 % (38.7-73.9); Platelet Count 326 T/CUMM (130-400); Red Blood Count 3.72 MC/CUMM (3.8-5.5); Red Cell Distribution Width 22.2 % (9.3-17.3); White Blood Count 19.9 T/CUMM (4-12)
[2017-11-22 06:35] LABS: Band Neutrophils 6 % (0-10); Eosinophils 3 % (0-10); Hypochromasia 1+; Lymphocytes 9 % (20-55); Myelocytes 2 %; Nucleated Red Blood Cells 1 (0-5); Platelet Estimate Adequate; Segmented Neutrophils 68 % (50-85); Total Cells Counted 100
[2017-11-22] MEDS: INSULIN NPH 100 UNIT/ML SUBCUT SCH ×2 (07:58→17:22)
[2017-11-22] MEDS: POLYVINYL ALCOHOL 1.4% OPH SOLN 15 ML BOTTLE BOTH EYES SCH ×2 (08:00→23:39)
[2017-11-22] MEDS: FAMOTIDINE 20 MG/2 ML VIAL IV SCH (08:00)
[2017-11-22] MEDS: CIPROFLOXACIN 0.3% OPH SOLN 2.5 ML BOTTLE BOTH EYES SCH ×3 (08:00→23:39)
[2017-11-22] MEDS: AMIODARONE 200 MG TABLET PO SCH ×2 (08:00→23:39)
[2017-11-22] MEDS: FERROUS SULFATE 300 MG/5 ML UDCUP PO SCH ×2 (08:00→23:39)
[2017-11-22] MEDS: DILTIAZEM INJ 100 MG in SODIUM CHLORIDE 0.9% 100 ML IV SCH (14:07)
[2017-11-22] MEDS: MORPHINE 4 MG/1 ML VIAL IV PRN (23:40)
[2017-11-22] MEDS: MINERAL OIL/PETROLATUM OPH OINT 3.5 GM TUBE BOTH EYES SCH (23:40)
[2017-11-23] MEDS: ALBUTEROL/IPRATROPIUM 3 ML NEB RESP TX SCH (02:09)
[2017-11-23] MEDS: MORPHINE 4 MG/1 ML VIAL IV PRN ×2 (09:51→23:44)
[2017-11-23] MEDS: PANTOPRAZOLE 40 MG VIAL IV SCH (09:51)
[2017-11-24] MEDS: PANTOPRAZOLE 40 MG VIAL IV SCH (09:16)
[2017-11-24] MEDS: DEXT 5% NACL 0.45% KCL 20 MEQ 20 MEQ/1,000 ML BAG IV SCH (09:17)
[2017-11-24] MEDS ORDERED: CIPROFLOXACIN 0.3% OPH SOLN 2.5 ML BOTTLE BOTH EYES SCH (19:09)
[2017-11-24] MEDS: AMIODARONE 200 MG TABLET PO SCH ×2 (20:01→20:34)
[2017-11-24] MEDS: ALBUTEROL/IPRATROPIUM 3 ML NEB RESP TX SCH (20:35)
[2017-11-25] MEDS: ALBUTEROL/IPRATROPIUM 3 ML NEB RESP TX SCH ×4 (00:09→19:13)
[2017-11-25] MEDS: DEXT 5% NACL 0.45% KCL 20 MEQ 20 MEQ/1,000 ML BAG IV SCH ×2 (00:20→15:24)
[2017-11-25] MEDS: AMIODARONE 200 MG TABLET PO SCH ×2 (08:23→20:03)
[2017-11-25] MEDS: PANTOPRAZOLE 40 MG VIAL IV SCH (09:12)
[2017-11-26] MEDS: ALBUTEROL/IPRATROPIUM 3 ML NEB RESP TX SCH ×4 (00:21→19:09)
[2017-11-26] MEDS: DEXT 5% NACL 0.45% KCL 20 MEQ 20 MEQ/1,000 ML BAG IV SCH ×2 (01:40→15:37)
[2017-11-26] MEDS: PANTOPRAZOLE 40 MG VIAL IV SCH (08:29)
[2017-11-26] MEDS: AMIODARONE 200 MG TABLET PO SCH ×2 (08:53→21:43)
[2017-11-27] MEDS: ALBUTEROL/IPRATROPIUM 3 ML NEB RESP TX SCH ×4 (00:42→20:29)
[2017-11-27] MEDS: DEXT 5% NACL 0.45% KCL 20 MEQ 20 MEQ/1,000 ML BAG IV SCH (03:50)
[2017-11-27] MEDS: AMIODARONE 200 MG TABLET PO SCH ×2 (09:01→20:44)
[2017-11-27] MEDS: PANTOPRAZOLE 40 MG VIAL IV SCH (09:12)
[2017-11-27] MEDS: MORPHINE 4 MG/1 ML VIAL IV PRN ×2 (15:40→20:41)
[2017-11-28] MEDS: ALBUTEROL/IPRATROPIUM 3 ML NEB RESP TX SCH ×4 (01:00→20:36)
[2017-11-28] MEDS: AMIODARONE 200 MG TABLET PO SCH ×2 (08:20→21:41)
[2017-11-28] MEDS: MORPHINE 4 MG/1 ML VIAL IV PRN ×2 (11:35→16:30)
[2017-11-29] MEDS: ALBUTEROL/IPRATROPIUM 3 ML NEB RESP TX SCH ×4 (01:12→19:06)
[2017-11-29] MEDS: AMIODARONE 200 MG TABLET PO SCH ×2 (08:55→21:24)
[2017-11-29] MEDS: MORPHINE 4 MG/1 ML VIAL IV PRN ×2 (08:55→18:34)
[2017-11-30] MEDS: ALBUTEROL/IPRATROPIUM 3 ML NEB RESP TX SCH ×4 (00:38→19:45)
[2017-11-30] MEDS: AMIODARONE 200 MG TABLET PO SCH ×2 (10:14→21:16)
[2017-12-01] MEDS: ALBUTEROL/IPRATROPIUM 3 ML NEB RESP TX SCH ×4 (01:05→19:13)
[2017-12-01] MEDS: AMIODARONE 200 MG TABLET PO SCH ×2 (12:15→22:02)
[2017-12-02] MEDS: ALBUTEROL/IPRATROPIUM 3 ML NEB RESP TX SCH ×4 (00:06→19:31)
[2017-12-02] MEDS: AMIODARONE 200 MG TABLET PO SCH ×2 (11:13→20:27)
[2017-12-02] MEDS: MORPHINE 4 MG/1 ML VIAL IV PRN (23:31)
[2017-12-03] MEDS: ALBUTEROL/IPRATROPIUM 3 ML NEB RESP TX SCH ×4 (00:22→20:03)
[2017-12-03] MEDS: AMIODARONE 200 MG TABLET PO SCH ×2 (09:17→20:45)
[2017-12-03] MEDS ORDERED: TUBERCULIN SKIN TEST 0.1 ML SYRINGE INTRADERM ONE (15:23)
[2017-12-04] MEDS: ALBUTEROL/IPRATROPIUM 3 ML NEB RESP TX SCH ×4 (00:23→19:02)
[2017-12-04] MEDS: AMIODARONE 200 MG TABLET PO SCH ×2 (11:44→21:54)
[2017-12-05] MEDS: ALBUTEROL/IPRATROPIUM 3 ML NEB RESP TX SCH ×4 (00:17→19:15)
[2017-12-05] MEDS: AMIODARONE 200 MG TABLET PO SCH ×2 (09:05→20:07)
[2017-12-06] MEDS: ALBUTEROL/IPRATROPIUM 3 ML NEB RESP TX SCH ×4 (00:24→19:10)
[2017-12-06] MEDS: AMIODARONE 200 MG TABLET PO SCH ×2 (10:26→21:05)
[2017-12-07] MEDS: ALBUTEROL/IPRATROPIUM 3 ML NEB RESP TX SCH ×4 (00:41→19:27)
[2017-12-07] MEDS: AMIODARONE 200 MG TABLET PO SCH ×2 (09:57→20:29)
[2017-12-08] MEDS: ALBUTEROL/IPRATROPIUM 3 ML NEB RESP TX SCH ×2 (01:37→08:10)
[2017-12-08] MEDS: AMIODARONE 200 MG TABLET PO SCH (08:52)
[2017-12-08 12:57] VITALS: BP 114/78
== END 2017-12-08 13:14 | disposition hospice, inpatient (51) | DRG 199 ==
LOC: N.CC 22:12 → N.5E 11-24 17:51
PROVIDERS: ADMIT Internal Medicine Pulmonary Disease; ATTEND Internal Medicine Pulmonary Disease